=== PATIENT | male | born 1985 | race Two or more races ===

== ENCOUNTER 2024-10-24 23:14 | Emergency (ER) | payer SELFPAY ==
[~2024-10-24] VITALS: Ht 185.4 cm; Wt 92.3 kg
[2024-10-24 23:19] VITALS: BP 124/87; RESP 16; TEMP 36.8; O2SAT 100
[2024-10-24 23:21] VITALS: PULSE 78; O2SAT 100
[2024-10-25] MEDS ORDERED: METH-774 MT (00:07)
[2024-10-25] MEDS ORDERED: ASPI-1154 PO (00:07)
[2024-10-25] MEDS ORDERED: TRAZ300T11 MT (00:12)
[2024-10-25] MEDS: ASPIRIN/ACETAMINOPHEN/CAFFEINE 250/250/65MG TABLET PO PRN (00:24)
== END 2024-10-25 04:00 | disposition home or self-care (01) ==
LOC: ER 23:14
DX: T14.90XA Injury, unspecified, initial encounter (principal); M54.2 Cervicalgia; M54.9 Dorsalgia, unspecified; G43.909 Migraine, unspecified, not intractable, without status migrainosus; X58.XXXA Exposure to other specified factors, initial encounter; Y93.89 Activity, other specified; Y92.89 Other specified places as the place of occurrence of the external cause; Y99.8 Other external cause status
CPT/HCPCS: 72128; 72131; 72192; 99284

== ENCOUNTER → 2024-10-25 | Emergency (ER) | payer BC ==
[~2024-10-25] MED LIST: ASPI-1154 PO; METH-774 MT; TRAZ300T11 MT
== END ==
LOC: ER 07:57
DX: M54.9 Dorsalgia, unspecified (principal); Z53.21 Procedure and treatment not carried out due to patient leaving prior to being seen by health care provider

== ENCOUNTER 2024-12-23 21:41 | Emergency (ER) | payer BC ==
[~2024-12-23] VITALS: Ht 182.9 cm; Wt 86.0 kg
[2024-12-23 21:51] VITALS: O2SAT 99
[2024-12-23] MEDS: ONDANSETRON 4MG ODT PO ONE (22:44)
[2024-12-23] MEDS ORDERED: PROT20 MT (22:54)
[2024-12-23] MEDS ORDERED: ONDA-239 PO (22:54)
[2024-12-23 23:04] VITALS: BP 130/84; PULSE 81; RESP 16; TEMP 36.6; O2SAT 100
== END 2024-12-23 23:06 | disposition home or self-care (01) ==
LOC: ER 21:41
DX: R11.2 Nausea with vomiting, unspecified (principal); Z79.899 Other long term (current) drug therapy
CPT/HCPCS: 99283; Q0162